=== PATIENT | male | born 1975 | race Caucasian/White ===

== ENCOUNTER 2019-08-27 08:00 | Outpatient (RCR) | payer BC, MEDICAID, SELFPAY | END 2019-08-31 15:31 | disposition home or self-care (01) | LOC: PT.CARL 08:00 | PROVIDERS: PCP Physician Assistant; Visit Provider Physician Assistant | DX: M25.511 Pain in right shoulder (principal) | CPT/HCPCS: 97110; 97163 ==

== ENCOUNTER 2020-01-10 17:57 | Observation (INO) | payer BC, MEDICAID, SELFPAY ==
[2020-01-10] VITALS (8 sets, daily range): BP systolic 97–131; BP diastolic 65–85; PULSE 67–115; RESP 16–28; TEMP 36.7–38.4; O2SAT 96–98; BMI 37.5; BMI 36.1
--- NOTE | 2020-01-10 18:01 | XR_ITS ---
PROCEDURE: XR CHEST PORTABLE CLINICAL HISTORY: SOA, fever, cough COMPARISON: XR CHEST 2V from 08/23/2019 CT CHEST W CON from 08/23/2019 CT ANGIO CHEST from 01/10/2020 FINDINGS: There has been prior gastric pull-through surgery with opacification of the right hemithorax medially. Atelectatic changes versus infiltrate noted in the right lower lobe. Right IJ central line present with the tip overlying the upper chest. The left lung is clear IMPRESSION: Prior gastric pull-through surgery with right basilar atelectasis or infiltrate Dictated by: Gabriel Feldman MD 01/11/2020 08:04 Electronically signed by Gabriel Feldman MD in [place] 01/11/2020 08:04
--- NOTE | 2020-01-10 18:01 | ECG_ITS ---
APPROVED REPORT Exam: Resting ECG HR:114 bpm ECG Measurements Heart Rate 114 AXES IL 150 P 55 QRSd 84 QRS 13 QT 342 T 67 QTc 471 <Conclusion> Sinus tachycardia with premature atrial complexes Possible Left atrial enlargement Borderline ECG Electronically signed by : Luke Stack, 01/11/2020 09:12:51
--- NOTE | 2020-01-10 18:02 | PC.NURSE ---
ER gave verbal orders for pt including rapid covid swab, contacted warehouse handler to get permission for rapid covid swab, warehouse handler okayed rapid covid swab. Lab notified, spoke with preet
[2020-01-10 18:24] LABS: Adenovirus,PCR Not Detected (NotDetected); Bordetella Pertussis Not Detected (NotDetected); Chlamydophila Pneumoniae, PCR Not Detected (NotDetected); Coronavirus 19, PCR Not Detected (NotDetected); Coronavirus 229E Not Detected (NotDetected); Coronavirus NL63 Not Detected (NotDetected); Coronavirus OC43 Not Detected (NotDetected); Coronovirus HKU1,PCR Not Detected (NotDetected); Human Metapneumovirus Not Detected (NotDetected); Influenza A, PCR Not Detected (NotDetected); Influenza AH1, 2009 Not Detected (NotDetected); Influenza AH1, PCR Not Detected (NotDetected); Influenza AH3,PCR Not Detected (NotDetected); Influenza B, PCR Not Detected (NotDetected); Mycoplasma Pneumoniae, PCR Not Detected (NotDetected); Parainfluenza 1, PCR Not Detected (NotDetected); Parainfluenza 2, PCR Not Detected (NotDetected); Parainfluenza 3, PCR Not Detected (NotDetected); Parainfluenza 4, PCR Not Detected (NotDetected); Respiratory Syncytial Virus Not Detected (NotDetected); Rhinovirus/Enterovirus Not Detected (NotDetected)
[2020-01-10 18:29] LABS: Basophils # 0.1 K/mm3 (0-0.2); Basophils % 0.8 % (0.1-2.0); Eosinophils % 0.3 % (0.1-12.0); Hematocrit 33.9 % (42.0-52.0); Hemoglobin 11.4 g/dL (14.1-18.0); Lymphocytes # 0.7 K/mm3 (0.7-4.5); Lymphocytes % 5.9 % (10-50); Mean Corpuscular HGB Conc 33.5 g/dL (31.8-35.4); Mean Corpuscular Hemoglobin 29.8 pg (27.0-31.2); Mean Platelet Volume 7.8 fl (7.4-10.4); Monocytes # 0.3 K/mm3 (0.1-1.0); Monocytes % 2.4 % (1.7-9.3); Neutrophils # 10.3 K/mm3 (1.8-7.8); Neutrophils % 91.5 % (37.0-80.0); Platelet Count 158 K/mm3 (142-424); Red Blood Count 3.81 M/mm3 (4.60-6.20); Red Cell Distribution Width 16.7 % (11.5-17.5); White Blood Count 11.2 K/mm3 (4.8-10.8)
--- NOTE | 2020-01-10 18:29 | PC.NURSE ---
Calling [facility] at this time to get records on his previous admissions
--- NOTE | 2020-01-10 18:30 | HMH.EDGENADL ---
ED Disposition Clinical Impression: Esophageal cancer, stage IV Pneumonia Qualifiers: Pneumonia type: due to unspecified organism Laterality: bilateral Lung location: lower lobe of lung Qualified Code(s): J18.9 - Pneumonia, unspecified organism Sepsis Qualifiers: Sepsis type: sepsis due to unspecified organism Sepsis acute organ dysfunction status: without acute organ dysfunction Qualified Code(s): A41.9 - Sepsis, unspecified organism Disposition: Xfer Critical Access Hosp Condition on Discharge: Fair Referrals: Huma Duke PA [Primary Care Provider] - Forms: Transfer Record - ED Time of Disposition: 20:39 - Critical Care Critical Care Time: No Attestation: On 01/10/20, the high probability of a clinically significant, sudden or life threatening deterioration of the following system(s) required my full and direct attention, intervention and personal management. The time I documented below is in addition to time spent performing reported procedures but includes the following listed in this critical care notation. Medical Decision Making - Medical Records Medical records reviewed: Yes: I reviewed the patient's medical records. - Manolo Inquiry Pt receiving controlled substance: No Vital Signs: 01/10/20 18:24 Temperature 101.1 F H Temperature Source Rectal Pulse Rate [Right Radial] 115 H Respiratory Rate 22 Blood Pressure [Right Arm] 97/71 L Blood Pressure Mean [Right Arm] 79 02 Sat by Pulse Oximetry 96 Oxygen Delivery Method Room Air - Lab Data Lab Results 01/10/20 18:14: WBC 11.2 H, RBC 3.81 L, Hgb 11.4 L, Hct 33.9 L, MCV 89.0, MCH 29.8, MCHC 33.5, RDW 16.7, Plt Count 158, MPV 7.8, Neut % (Auto) 91.5 H, Lymph % (Auto) 5.9 L, [place] % (Auto) 2.4, Eos % (Auto) 0.3, Baso % (Auto) 0.8, Neut # (Auto) 10.3 H, Lymph # (Auto) 0.7, [place] # (Auto) 0.3, Eos # (Auto) 0.0, Baso # (Auto) 0.1, Total Counted 100, Neutrophils % (Manual) 59, Band Neutrophils % 35.0 H, Lymphocytes % (Manual) 6 L, Differential Comment See below:, Toxic Granulation 1+, Platelet Estimate Normal, RBC Morphology Normal, Anisocytosis 1+ 08/02/20 18:14: Sodium 132 L, Potassium 3.6, Chloride 96 L, Carbon Dioxide 28, Anion Gap 11.6, BUN 22 H, Creatinine 0.90, Estimated Creat Clear 150, Estimated GFR 91, Est GFR ( Amer) 110, Glucose 99, Calcium 7.8 L, Troponin I < 0.01 01/10/20 18:14: Lactate 1.3 01/10/20 18:14: D-Dimer 2170 H* 01/10/20 18:14: PT 12.5 H, INR 1.23 H, APTT 25.6 01/10/20 18:14: Total Bilirubin 0.5, Direct Bilirubin 0.1, Conjugated Bilirubin 0.0, Indirect Bilirubin 0.4, Unconjugated Bilirubin 0.5, AST 24, ALT 17, Alkaline Phosphatase 103, Total Protein 6.0 L, Albumin 2.9 L 01/10/20 18:15: Chlamy pneumoniae PCR Not detected, Adenovirus (PCR) Not detected, B. pertussis DNA (PCR) Not detected, Coronavirus OC43 (PCR) Not detected, Coronavirus HKU1 (PCR) Not detected, Coronavirus 229E (PCR) Not detected, COVID-19 PCR Not detected, Coronavirus NL63 (PCR) Not detected, Human Metapneumovir PCR Not detected, Influenza A (H1) PCR Not detected, Influ A (H1N1/09) PCR Not detected, Influenza A (H3) PCR Not detected, Influenza Type A (PCR) Not detected, Influenza Type B (PCR) Not detected, M. pneumoniae (PCR) Not detected, Parainfluenza 1 (PCR) Not detected, Parainfluenza 2 (PCR) Not detected, Parainfluenza 3 (PCR) Not detected, Parainfluenza 4 (PCR) Not detected, RSV (PCR) Not detected, Entero/Rhino (PCR) Not detected Result diagrams: 01/10/20 18:14 01/10/20 18:14 Orders (Tests/Meds): ED MEDICATIONS Generic Name Dose Route Start Last Admin Trade Name Freq PRN Reason Stop Dose Admin Sodium Chloride 1,000 mls @ 999 mls/hr 01/10/20 18:15 01/10/20 18:18 Sod Chlor 0.9% 1000ml Bag IV 01/10/20 19:15 999 mls/hr .Q1H1M WILL Administration Cefepime HCl 2 gm/ Sodium 100 mls @ 200 mls/hr 01/10/20 18:45 01/10/20 18:49 Chloride IV 01/24/20 18:44 200 mls/hr Q8H WILL Administration Protocol Discontinued Medications Generi
[2020-01-10 18:32] LABS: MANUAL DIFFERENTIAL MANUAL DIFFERENTIAL (MANUAL DIFF)
[2020-01-10 18:33] LABS: Chloride 96 mmol/L (98-107); Potassium 3.6 mmoL/L (3.5-5.1); Sodium 132 mmol/L (136-145)
[2020-01-10 18:36] LABS: Blood Urea Nitrogen 22 mg/dl (9-20); Creatinine Clearance Estimated 150 mL/min (50-200); Estimated Glomerular Filt Rate 91 ml/min (>60); GFR (African American) 110 ML/MIN (>60); Lactic Acid 1.3 mmol/L (0.7-2.1)
[2020-01-10 18:37] LABS: Anion Gap 11.6 mEq/L (5-15); Calcium 7.8 mg/dl (8.4-10.2); Carbon Dioxide 28 mmol/L (22.0-30.0); Glucose 99 mg/dl (74-100)
[2020-01-10 18:39] LABS: Alanine Aminotransferase 17 U/L (12-78); Alkaline Phosphatase 103 U/L (38-126); Aspartate Amino Transferase 24 U/L (17-59); Bilirubin,Direct 0.1 mg/dl (0.0-0.4); Bilirubin,Indirect 0.4 mg/dL (0.0-0.9); Bilirubin,Total 0.5 mg/dl (0.2-1.3); Bilirubin,Unconjugated 0.5 mg/dL (0.0-1.1)
[2020-01-10 18:40] LABS: Albumin Level 2.9 g/dl (3.5-5.0)
[2020-01-10 18:45] LABS: Lymphocytes % 6 % (10-50); Neutrophils % 59 % (42-76); RBC Morphology Normal; Total Cells Counted 100
[2020-01-10 18:46] LABS: Anisocytosis 1+; Platelet Estimate Normal; Toxic Granulation 1+
[2020-01-10 18:47] LABS: Differential Comment SEE BELOW:
[2020-01-10 18:55] LABS: Activated Partial Thrombo Time 25.6 seconds (23.6-34.0); D-Dimer 2170 ng/mL (0-400); INR 1.23 (0.9-1.1); Prothrombin Time 12.5 seconds (9.4-11.8)
[2020-01-10 18:56] LABS: Troponin I < 0.01 ng/ml (0.00-0.034)
--- NOTE | 2020-01-10 18:59 | CT_ITS ---
PROCEDURE: CT ANGIO CHEST CLINCIAL INDICATION: short of breath, elevated d-dimer COMPARISON: CT CHEST W CON from 08/23/2019 TECHNIQUE: IV Contrast: 70ML OPTIRAY 350 Axial images obtained with sagittal and coronal reformats. All CT scans at the facility use one or more dose reduction, viz: automated exposure control, ma/kV adjustment per patient size (including targeted exams where dose is matched to indication, i.e. head), or iterative reconstruction technique. FINDINGS: There has been prior soft gas ectomy with gastric pull-through surgery. Extensive artifact is present from collateral vessels about the neck. There appears to be obstruction the right subclavian and right brachiocephalic vein with extensive collateral vessels. The SVC and left brachiocephalic vein is patent. No mediastinal or hilar mass. There is some fluid density noted in the esophagus bed inferiorly there is a small right pleural effusion with right-sided atelectatic changes with some pleural thickening in the right upper hemithorax posteriorly. A pleural drain is in place on the right. Loculated fluid collection is noted in the right lung base. No significant pleural enhancement or gas noted in this collection. Patchy density is present in the left lower lobe centrally suggesting a area of infiltrate. No acute bony anomalies. Upper abdominal images show borderline splenomegaly at 13 cm. There is some subcutaneous edema along the right lateral and anterior chest wall. There are postsurgical changes from the esophagectomy with some increase density of the fat in the upper abdomen. This is nonspecific and could be inflammatory infectious or even neoplastic. IMPRESSION: 1. Prior esophagectomy with gastric pull-through 2. Loculated right-sided pleural effusion with right basilar atelectasis 3. Patchy infiltrate in the left lower lobe. 4. 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 Increased soft tissue density in the upper abdominal fat centrally which could be inflammatory/infectious, or neoplastic. Dictated by: Gabriel Feldman MD 01/11/2020 08:46 Electronically signed by Gabriel Feldman MD in [place] 01/11/2020 08:46
--- NOTE | 2020-01-10 19:05 | PC.NURSE ---
notified rad of ct order on pt, spoke with randall, notified her pt is being worked up for covid
--- NOTE | 2020-01-10 19:24 | PC.NURSE ---
call placed to [facility] for possible transfer. spoke with shayla with the [facility]. they will call back
--- NOTE | 2020-01-10 19:29 | PC.NURSE ---
received call back from [facility]. on phone with dr jimenez at this time
--- NOTE | 2020-01-10 19:34 | PC.NURSE ---
accepted by dr treadwell
--- NOTE | 2020-01-10 20:21 | PC.NURSE ---
call placed to [facility] discussing bed condition. spoke with shayla. received knowledge that patient was actually on a waiting list and they would keep us updated. md ch made aware.
--- NOTE | 2020-01-10 20:23 | PC.NURSE ---
paged dr desouza who is production machine operator for service.
--- NOTE | 2020-01-10 20:23 | PC.NURSE ---
dr desouza returned call at this time.
--- NOTE | 2020-01-10 21:43 | PC.NURSE ---
PTARRIVED TO THE FLOOR VIA STRETCHER FROM ED AT 2142.
--- NOTE | 2020-01-10 22:33 | HMH.HP ---
*Admission Date: 01/10/20 *Chief complaint: Chest pain *History of present illness: This 44-year-old white male was diagnosed with esophageal cancer approximately 1 year ago. He was treated with surgery radiation and chemotherapy. The cancer recurred and is stage IV at this point. He is taken care of by Dr. Can oncology, I believe at [place] and by Dr. Henderson at [facility]. [facility] contacted Dr. Henderson who agreed to hospitalize him at [facility] but there were no beds available. Thus he is admitted here. He is primary care provider is Huma Duke in [place]. Patient lives in [place]. The patient complains of feeling short of breath and having pain in the chest and epigastrium. This is been going on for several days. He only vomited this evening. Though he has esophageal cancer the patient has no smoking history and no alcohol history. According to the ER record there is a past history of DVT. [facility] History Medical History: Reports:: Cancer (esophageal cancer), Hyperlipidemia, Hypertension Denies:: Diabetes Mellitus Type 1, Diabetes Mellitus Type 2, MRSA *Have you ever received a pneumonia vaccine?: No *Have you received a flu vaccine this season?: No Other Surgeries: Yes: Cancer Surgery Amputation: No - *Social History Last grade of school completed: High school graduate Smoking Status: Never smoker Alcohol Intake: never *Occupational Status:: retired *Travel in the last 8 weeks: None Family Hx:: Alcoholism (Father and with liver disease. at age 65.), Other (Mother 74 years old with dementia) Review of Systems - Constitutional Reports anorexia, Reports body ache(s), Reports weakness, Reports weight loss - Eyes Denies change in vision - ENT Reports difficulty swallowing - *Cardiovascular Reports chest pain, Reports chest pain at rest, Reports shortness of breath, Denies irregular heart rhythm - *Respiratory Reports chest congestion, Reports cough, Reports shortness of breath - *Gastrointestinal Reports abdominal pain, Reports loose stools - *Neurologic Reports weakness, Denies headache(s), Denies loss of vision, Denies dizziness Meds Home Medications Medication Instructions Recorded Confirmed Type Atorvastatin Calcium [Atorvastatin 20 mg PO DAILY 08/23/19 01/10/20 History 20mg Tab] Famotidine [Heartburn Prevention] 20 mg PO DAILY 08/23/19 01/10/20 History Metoclopramide HCl [Metoclopramide 10 mg PO DAILY 08/23/19 01/10/20 History 10mg Tablet] Multivitamin/Iron/Folic Acid 1 each PO DAILY 08/23/19 01/10/20 History [Sentry Tablet] Pantoprazole Sodium [Pantoprazole 20 mg PO DAILY 08/23/19 01/10/20 History 20mg Tab] Allergies Allergy/AdvReac Type Severity Reaction Status Date / Time No Known Allergies Allergy Verified 08/23/19 19:53 Exam Vital signs and Labs for Last 24 Hours: Temp Pulse Resp BP Pulse Ox 98.7 F 105 H 28 H 131/85 96 01/10/20 21:46 01/10/20 21:46 01/10/20 21:46 01/10/20 21:46 01/10/20 21:46 Laboratory Results - last 24 hr 01/10/20 18:14: WBC 11.2 H, RBC 3.81 L, Hgb 11.4 L, Hct 33.9 L, MCV 89.0, MCH 29.8, MCHC 33.5, RDW 16.7, Plt Count 158, MPV 7.8, Neut % (Auto) 91.5 H, Lymph % (Auto) 5.9 L, [place] % (Auto) 2.4, Eos % (Auto) 0.3, Baso % (Auto) 0.8, Neut # (Auto) 10.3 H, Lymph # (Auto) 0.7, [place] # (Auto) 0.3, Eos # (Auto) 0.0, Baso # (Auto) 0.1, Total Counted 100, Neutrophils % (Manual) 59, Band Neutrophils % 35.0 H, Lymphocytes % (Manual) 6 L, Differential Comment See below:, Toxic Granulation 1+, Platelet Estimate Normal, RBC Morphology Normal, Anisocytosis 1+ 01/10/20 18:14: Sodium 132 L, Potassium 3.6, Chloride 96 L, Carbon Dioxide 28, Anion Gap 11.6, BUN 22 H, Creatinine 0.90, Estimated Creat Clear 150, Estimated GFR 91, Est GFR ( Amer) 110, Glucose 99, Calcium 7.8 L, Troponin I < 0.01 01/10/20 18:14: Lactate 1.3 01/10/20 18:14: D-Dimer 2170 H* 01/10/20 18:14: PT 12.5 H, INR 1.23 H,
--- NOTE | 2020-01-10 23:07 | PC.NURSE ---
THIS NURSE WAS CONTACTED BY NURSE AT [facility] WANTING AN UPDATE ON PT. NURSE STATED THERE WAS STILL NO BED AVAILABLE, AND WILL CALL BACK IN A COUPLE HOURS FOR AN UPDATE.
[2020-01-11] VITALS: BP 119/71; PULSE 104; RESP 18; TEMP 36.8; O2SAT 95
--- NOTE | 2020-01-11 03:22 | PC.NURSE ---
A&OX4. PT TOLERATING RA THUS FAR, 2LNC ON STANDBY. PT STATES HE DOES GET SHORT OF BREATH EASILY. PT HAS INTERMITTENT COUGH, PRODUCING THICK LIGHT YELLOW SPUTUM. WILL ATTEMPT TO COLLECT SAMPLE. PT ALSO HAS HAD SOME NA/VO THIS SHIFT, TX WITH ZOFRAN PER AUG. ON REASSESSMENT, PT RESTING IN BED WITH EYES CLOSED. PT HAS ALSO C/O PAIN IN HIS MID CHEST AND LUNG AREA, STATES THAT IT GETS WORSE WHEN HE COUGHS. TX WITH PRN MORPHINE PER AUG. ON REASSESSMENT PT RESTING IN BED WITH NO C/O PAIN. PT STANDING UP AT THE SIDE OF BED WITH X1 ASSIST TO USE THE URINAL. PT STATES THAT HE FEELS VERY BAD, AND VERY TIRED. THIS NURSE HAS BEEN CONTACTED A SECOND TIME BY THE NURSE AT [facility] TO GET AN UPDATE ON THE PT AT 0158. NURSE STATES THAT IT WILL PROBABLY BE MORNING UNTIL A BED BECOMES AVAILABLE. NO OTHER C/O THUS FAR. VSS WILL CONTINUE TO MONITOR.
[2020-01-11 04:00] VITALS: BP 107/64; PULSE 99; RESP 18; TEMP 37; O2SAT 95
[2020-01-11 05:45] VITALS: BMI 36.3
[2020-01-11 05:59] LABS: Basophils # 0.1 K/mm3 (0-0.2); Basophils % 0.7 % (0.1-2.0); Eosinophils % 0.6 % (0.1-12.0); Hematocrit 33.9 % (42.0-52.0); Lymphocytes # 0.6 K/mm3 (0.7-4.5); Lymphocytes % 8.3 % (10-50); Mean Corpuscular HGB Conc 32.4 g/dL (31.8-35.4); Mean Corpuscular Hemoglobin 29.5 pg (27.0-31.2); Mean Platelet Volume 9.1 fl (7.4-10.4); Monocytes # 0.5 K/mm3 (0.1-1.0); Monocytes % 7.5 % (1.7-9.3); Neutrophils # 5.7 K/mm3 (1.8-7.8); Neutrophils % 82.9 % (37.0-80.0); Platelet Count 95 K/mm3 (142-424); Red Blood Count 3.72 M/mm3 (4.60-6.20); Red Cell Distribution Width 16.6 % (11.5-17.5); White Blood Count 6.9 K/mm3 (4.8-10.8)
[2020-01-11 06:09] LABS: Anion Gap 10.3 mEq/L (5-15); Blood Urea Nitrogen 19 mg/dl (9-20); Calcium 7.2 mg/dl (8.4-10.2); Carbon Dioxide 26 mmol/L (22.0-30.0); Chloride 101 mmol/L (98-107); Creatinine Clearance Estimated 187 mL/min (50-200); Estimated Glomerular Filt Rate 122 ml/min (>60); GFR (African American) 148 ML/MIN (>60); Glucose 95 mg/dl (74-100); Lactic Acid 0.8 mmol/L (0.7-2.1); Potassium 3.3 mmoL/L (3.5-5.1); Sodium 134 mmol/L (136-145)
--- NOTE | 2020-01-11 06:42 | PC.NURSE ---
ALEXANDER FROM [facility] CALLED FOR AN UPDATE FROM THIS NURSE FOR THE 3RD TIME TONIGHT. STILL NO BED AVAILABLE. THEY WILL CALL BACK IN A COUPLE HOURS.
--- NOTE | 2020-01-11 07:11 | P.CONPHA_ITS ---
[facility] Pharmacy VTE Monitoring - Patient Demographics Admission date: 01/10/20 Report Date: 01/11/20 Time: 07:11 Allergies/Adverse Reactions: Patient Allergies No Known Allergies Allergy (Verified 08/23/19 19:53) Height: 1.65 m Weight: 98.997 kg Patient Problems: Current Active Problems Pneumonia (Acute) Sepsis (Acute) Esophageal cancer, stage IV (Acute) - VTE Risk Labs: VTE Related Lab Results Hgb 11.0 g/dL (14.1-18.0) L 01/11/20 05:53 Hct 33.9 % (42.0-52.0) L 01/11/20 05:53 Plt Count 95 K/mm3 (142-424) L D 01/11/20 05:53 PT 12.5 seconds (9.4-11.8) H 01/10/20 18:14 INR 1.23 (0.9-1.1) H 01/10/20 18:14 APTT 25.6 seconds (23.6-34.0) 01/10/20 18:14 BUN 19 mg/dl (9-20) 01/11/20 05:53 Creatinine 0.70 mg/dl (0.66-1.25) D 01/11/20 05:53 Estimated Creat Clear 187 mL/min (50-200) 01/11/20 05:53 VTE Score: 5 VTE Risk Level: Low Risk - Prophylaxis VTE Prophylaxis Ordered?: Yes Types of VTE Prophylaxis: TEDS Knee High Location of Applied Device: Bilateral Lower Extremeties - VTE Diagnosis Confirmed Treatment or plan recommended: Continue Current Treatment
--- NOTE | 2020-01-11 07:55 | HMH.ACPN2 ---
Internal Medicine - PN: Subj *Date: 01/11/20 *Time: 07:55 Interval history: Patient states he is not doing well. He has pain in his epigastrium. He is nauseated. Food gets stuck in his esophagus. He is able to take p.o. fluids. He is a little short of breath this morning. He has pain in his chest on the inspiration. He is voiding QS. Bowels have not moved in several days. Laboratory data this morning shows normal white blood cell count at 6900 with a hemoglobin of 11 hematocrit of 33.9. Potassium is 3.3. Normal renal function. Official reading of chest x-ray and CTA are pending. Exam Vital signs and Labs for Last 24 Hours: Temp Pulse Resp BP Pulse Ox 98.6 F 99 H 18 107/64 L 95 01/11/20 04:00 01/11/20 04:00 01/11/20 04:00 01/11/20 04:00 01/11/20 04:00 Laboratory Results - last 24 hr 01/10/20 18:14: WBC 11.2 H, RBC 3.81 L, Hgb 11.4 L, Hct 33.9 L, MCV 89.0, MCH 29.8, MCHC 33.5, RDW 16.7, Plt Count 158, MPV 7.8, Neut % (Auto) 91.5 H, Lymph % (Auto) 5.9 L, [place] % (Auto) 2.4, Eos % (Auto) 0.3, Baso % (Auto) 0.8, Neut # (Auto) 10.3 H, Lymph # (Auto) 0.7, [place] # (Auto) 0.3, Eos # (Auto) 0.0, Baso # (Auto) 0.1, Total Counted 100, Neutrophils % (Manual) 59, Band Neutrophils % 35.0 H, Lymphocytes % (Manual) 6 L, Differential Comment See below:, Toxic Granulation 1+, Platelet Estimate Normal, RBC Morphology Normal, Anisocytosis 1+ 01/10/20 18:14: Sodium 132 L, Potassium 3.6, Chloride 96 L, Carbon Dioxide 28, Anion Gap 11.6, BUN 22 H, Creatinine 0.90, Estimated Creat Clear 150, Estimated GFR 91, Est GFR ( Amer) 110, Glucose 99, Calcium 7.8 L, Troponin I < 0.01 01/10/20 18:14: Lactate 1.3 01/10/20 18:14: D-Dimer 2170 H* 01/10/20 18:14: PT 12.5 H, INR 1.23 H, APTT 25.6 01/10/20 18:14: Total Bilirubin 0.5, Direct Bilirubin 0.1, Conjugated Bilirubin 0.0, Indirect Bilirubin 0.4, Unconjugated Bilirubin 0.5, AST 24, ALT 17, Alkaline Phosphatase 103, Total Protein 6.0 L, Albumin 2.9 L 01/10/20 18:15: Chlamy pneumoniae PCR Not detected, Adenovirus (PCR) Not detected, B. pertussis DNA (PCR) Not detected, Coronavirus OC43 (PCR) Not detected, Coronavirus HKU1 (PCR) Not detected, Coronavirus 229E (PCR) Not detected, COVID-19 PCR Not detected, Coronavirus NL63 (PCR) Not detected, Human Metapneumovir PCR Not detected, Influenza A (H1) PCR Not detected, Influ A (H1N1/09) PCR Not detected, Influenza A (H3) PCR Not detected, Influenza Type A (PCR) Not detected, Influenza Type B (PCR) Not detected, M. pneumoniae (PCR) Not detected, Parainfluenza 1 (PCR) Not detected, Parainfluenza 2 (PCR) Not detected, Parainfluenza 3 (PCR) Not detected, Parainfluenza 4 (PCR) Not detected, RSV (PCR) Not detected, Entero/Rhino (PCR) Not detected 01/11/20 05:53: WBC 6.9 D, RBC 3.72 L, Hgb 11.0 L, Hct 33.9 L, MCV 91.0, MCH 29.5, MCHC 32.4, RDW 16.6, Plt Count 95 L D, MPV 9.1, Neut % (Auto) 82.9 H, Lymph % (Auto) 8.3 L, [place] % (Auto) 7.5, Eos % (Auto) 0.6, Baso % (Auto) 0.7, Neut # (Auto) 5.7, Lymph # (Auto) 0.6 L, [place] # (Auto) 0.5, Eos # (Auto) 0.0, Baso # (Auto) 0.1 01/11/20 05:53: Sodium 134 L, Potassium 3.3 L, Chloride 101, Carbon Dioxide 26, Anion Gap 10.3, BUN 19, Creatinine 0.70 D, Estimated Creat Clear 187, Estimated GFR 122, Est GFR ( Amer) 148 D, Glucose 95, Calcium 7.2 L 01/11/20 05:53: Lactate 0.8 I & O for Last 24 hours: Intake & Output 01/08/20 01/09/20 01/10/20 01/11/20 11:59 11:59 11:59 11:59 Intake Total 1309 / 1309 Output Total 1350 / 1350 Balance -41 / -41 Weight 218 lb 4 oz - Constitutional no acute distress Comments: Sitting on bedside trying to eat his breakfast. - *Routine Respiratory Exam Comments: Unable to take deep breaths due to inspiratory discomfort. Diminished breath sounds posteriorly but otherwise sounds clear - *Routine Cardiovascular Exam Present: RRR (90/min) - *Routine Abdominal Exam Present: soft, tenderness (Epigastrium). Absent: normoactive bowel sounds (Decreased) Comments:
[2020-01-11 07:56] VITALS: BP 116/61; PULSE 100; RESP 18; TEMP 36.8; O2SAT 97
--- NOTE | 2020-01-11 10:57 | HMH.PHACONS ---
- Pharmacy Consult Date: 01/11/20 Time: 09:00 Referring provider: Rajan Sneed Reason for Consult:: Management of vancomycin therapy for empiric treatment of pneumonia Allergies and ADEs:: Allergies Allergy/AdvReac Type Severity Reaction Status Date / Time No Known Allergies Allergy Verified 08/23/19 19:53 Home Medications:: Home Medications Medication Instructions Recorded Confirmed Type Atorvastatin Calcium [Atorvastatin 20 mg PO DAILY 08/23/19 01/10/20 History 20mg Tab] Famotidine [Heartburn Prevention] 20 mg PO HS PRN 08/23/19 01/11/20 History Metoclopramide HCl [Metoclopramide 10 mg PO Q6HP PRN 08/23/19 01/11/20 History 10mg Tablet] Multivitamin/Iron/Folic Acid 1 each PO DAILY 08/23/19 01/10/20 History [Sentry Tablet] Ciprofloxacin HCl [Ciprofloxacin 500 mg PO BID 01/11/20 01/11/20 History 500mg Tab] Enoxaparin Sodium [Lovenox 100 mg SQ BID 01/11/20 01/11/20 History 100mg/mL syringe] Furosemide [Furosemide 20mg Tab] 20 mg PO DAILY 01/11/20 01/11/20 History Ondansetron [Ondansetron Odt 8mg 8 mg PO Q8HP PRN 01/11/20 01/11/20 History Tab] Pantoprazole Sodium [Protonix 40mg 40 mg PO DAILY 01/11/20 01/11/20 History tablet] Potassium Chloride [Klor-con 20 20 meq PO DAILY 01/11/20 01/11/20 History mEq tablet] Zolpidem Tartrate [Ambien 5mg 5 mg PO HSP PRN 01/11/20 01/11/20 History tablet] hydrOXYzine pamoate [Vistaril 25mg 25 mg PO HS 01/11/20 01/11/20 History capsule] metroNIDAZOLE [metroNIDAZOLE 500mg 500 mg PO TID 01/11/20 01/11/20 History Tablet] Height: 1.65 m Weight: 98.997 kg Laboratory Results:: Laboratory Results - last 24 hr 01/10/20 18:14: WBC 11.2 H, RBC 3.81 L, Hgb 11.4 L, Hct 33.9 L, MCV 89.0, MCH 29.8, MCHC 33.5, RDW 16.7, Plt Count 158, MPV 7.8, Neut % (Auto) 91.5 H, Lymph % (Auto) 5.9 L, [place] % (Auto) 2.4, Eos % (Auto) 0.3, Baso % (Auto) 0.8, Neut # (Auto) 10.3 H, Lymph # (Auto) 0.7, [place] # (Auto) 0.3, Eos # (Auto) 0.0, Baso # (Auto) 0.1, Total Counted 100, Neutrophils % (Manual) 59, Band Neutrophils % 35.0 H, Lymphocytes % (Manual) 6 L, Differential Comment See below:, Toxic Granulation 1+, Platelet Estimate Normal, RBC Morphology Normal, Anisocytosis 1+ 01/10/20 18:14: Sodium 132 L, Potassium 3.6, Chloride 96 L, Carbon Dioxide 28, Anion Gap 11.6, BUN 22 H, Creatinine 0.90, Estimated Creat Clear 150, Estimated GFR 91, Est GFR ( Amer) 110, Glucose 99, Calcium 7.8 L, Troponin I < 0.01 01/10/20 18:14: Lactate 1.3 01/10/20 18:14: D-Dimer 2170 H* 01/10/20 18:14: PT 12.5 H, INR 1.23 H, APTT 25.6 01/10/20 18:14: Total Bilirubin 0.5, Direct Bilirubin 0.1, Conjugated Bilirubin 0.0, Indirect Bilirubin 0.4, Unconjugated Bilirubin 0.5, AST 24, ALT 17, Alkaline Phosphatase 103, Total Protein 6.0 L, Albumin 2.9 L 01/10/20 18:15: Chlamy pneumoniae PCR Not detected, Adenovirus (PCR) Not detected, B. pertussis DNA (PCR) Not detected, Coronavirus OC43 (PCR) Not detected, Coronavirus HKU1 (PCR) Not detected, Coronavirus 229E (PCR) Not detected, COVID-19 PCR Not detected, Coronavirus NL63 (PCR) Not detected, Human Metapneumovir PCR Not detected, Influenza A (H1) PCR Not detected, Influ A (H1N1/09) PCR Not detected, Influenza A (H3) PCR Not detected, Influenza Type A (PCR) Not detected, Influenza Type B (PCR) Not detected, M. pneumoniae (PCR) Not detected, Parainfluenza 1 (PCR) Not detected, Parainfluenza 2 (PCR) Not detected, Parainfluenza 3 (PCR) Not detected, Parainfluenza 4 (PCR) Not detected, RSV (PCR) Not detected, Entero/Rhino (PCR) Not detected 01/11/20 05:53: WBC 6.9 D, RBC 3.72 L, Hgb 11.0 L, Hct 33.9 L, MCV 91.0, MCH 29.5, MCHC 32.4, RDW 16.6, Plt Count 95 L D, MPV 9.1, Neut % (Auto) 82.9 H, Lymph % (Auto) 8.3 L, [place] % (Auto) 7.5, Eos % (Auto) 0.6, Baso % (Auto) 0.7, Neut # (Auto) 5.7, Lymph # (Auto) 0.6 L, [place] # (Auto) 0.5, Eos # (Auto) 0.0, Baso # (Auto) 0.1 01/11/20 05:53: Sodium 134 L, Potassium 3.3 L, Chloride 101, Carbon Dioxide 26, Anion Gap 10.3, BU
[2020-01-11 11:44] VITALS: BP 123/78; PULSE 99; RESP 20; TEMP 36.8; O2SAT 99
--- NOTE | 2020-01-11 11:56 | HMH.PHAINT ---
HOME MEDICATION RECONCILIATION ATTEMPTED USING LIST FROM [facility] [employer] AND PT INTERVIEW. PT POOR HISTORIAN.
--- NOTE | 2020-01-11 11:59 | PC.NURSE ---
Spoke with Windy from [facility]. She states no beds are available at this time but she was going to call dr Sneed to see if pt needed an ICU bed as requested or a regular med surg bed would be ok. She says she will call when a bed is available.
[2020-01-11 13:40] VITALS: BMI 36.3
[2020-01-11 15:15] VITALS: BP 106/75; PULSE 97; RESP 20; TEMP 36.7; O2SAT 98
--- NOTE | 2020-01-11 15:40 | PC.NURSE ---
Windy from [facility] called to update on bed status, no beds are available at this time.
--- NOTE | 2020-01-11 18:25 | PC.NURSE ---
called lab to check on vanc trough, they said they are working on it
[2020-01-11 20:00] VITALS: BP 110/70; PULSE 97; RESP 18; TEMP 36.9; O2SAT 96
[2020-01-12] VITALS (9 sets, daily range): BP systolic 105–128; BP diastolic 64–85; PULSE 83–100; RESP 17–22; TEMP 36.7–37.6; O2SAT 94–97; BMI 36.4
--- NOTE | 2020-01-12 04:46 | PC.NURSE ---
Hypertonic Solution given at 1932 for sputum induction. Pt unable to produce sputum
--- NOTE | 2020-01-12 05:18 | PC.NURSE ---
SPOKE WITH [facility] TWICE THIS SHIFT, HOSPITAL REPORTED THAT THEY STILL DO NOT HAVE A BED FOR PT. PT. HAS C/O INTERMITTENT NAUSEA, COUGH AND H/A. TX WITH ZOFRAN AND TYLENOL PER AUG; EFFECTIVENESS NOTED. PT. HAS NOT NEEDED PRN O2 THIS SHIFT. RESTING IN BED WITH EYES CLOSED AT THIS TIME.
[2020-01-12 07:08] LABS: Basophils % 0.2 % (0.1-2.0); Eosinophils % 0.6 % (0.1-12.0); Hematocrit 33.4 % (42.0-52.0); Hemoglobin 11.7 g/dL (14.1-18.0); Lymphocytes # 0.7 K/mm3 (0.7-4.5); Mean Corpuscular HGB Conc 34.9 g/dL (31.8-35.4); Mean Corpuscular Hemoglobin 30.1 pg (27.0-31.2); Mean Corpuscular Volume 86.3 fl (80-94); Mean Platelet Volume 10.8 fl (7.4-10.4); Monocytes # 0.8 K/mm3 (0.1-1.0); Monocytes % 11.6 % (1.7-9.3); Neutrophils # 5.5 K/mm3 (1.8-7.8); Neutrophils % 77.5 % (37.0-80.0); Platelet Count 72 K/mm3 (142-424); Red Blood Count 3.87 M/mm3 (4.60-6.20); Red Cell Distribution Width 16.6 % (11.5-17.5); White Blood Count 7.1 K/mm3 (4.8-10.8)
--- NOTE | 2020-01-12 08:55 | P.PN_ITS ---
Internal Medicine - PN: Subj *Date: 01/12/20 *Time: 08:55 Interval history: Does not feel any better. He continues with the pain in the epigastrium. He states food lodges in his esophagus. He continues with chest pain on inspiration. Voiding QS although he states his urine has a foul odor. His bowels did move yesterday. He plans to sit up in a chair today. Exam Vital signs and Labs for Last 24 Hours: Temp Pulse Resp BP Pulse Ox 98.2 F 100 H 18 118/76 95 01/12/20 07:32 01/12/20 07:32 01/12/20 07:32 01/12/20 07:32 01/12/20 07:32 Laboratory Results - last 24 hr 01/11/20 16:01: Vancomycin Trough 18.0 H 01/12/20 06:08: WBC 7.1, RBC 3.87 L, Hgb 11.7 L, Hct 33.4 L, MCV 86.3, MCH 30.1, MCHC 34.9, RDW 16.6, Plt Count 72 L, MPV 10.8 H, Neut % (Auto) 77.5, Lymph % (Auto) 10.0, [place] % (Auto) 11.6 H, Eos % (Auto) 0.6, Baso % (Auto) 0.2, Neut # (Auto) 5.5, Lymph # (Auto) 0.7, [place] # (Auto) 0.8, Eos # (Auto) 0.0, Baso # (Auto) 0.0 I & O for Last 24 hours: Intake & Output 01/09/20 01/10/20 01/11/20 01/12/20 11:59 11:59 11:59 11:59 Intake Total 1669 / 1669 3617 / 3617 Output Total 1450 / 1450 1230 / 1230 Balance 219 / 219 2387 / 2387 Weight 218 lb 4 oz 219 lb - Constitutional no acute distress Comments: Sitting on the bedside. - *Routine Respiratory Exam Comments: Unable to take a deep breath. Diminished breath sounds posteriorly. - *Routine Cardiovascular Exam Present: RRR - *Routine Abdominal Exam Present: soft, normoactive bowel sounds, tenderness (Epigastrium). Absent: distended Comments: Dressing over right lateral abdomen clean and dry. - *Routine Extremities Exam Absent: edema, calf tenderness Assessment and Plan (1) Esophageal cancer, stage IV Current visit: Yes Status: Acute Category: Medical Code(s): C15.9 - Malignant neoplasm of esophagus, unspecified (2) Atypical chest pain Current visit: No Status: Acute Category: Medical Code(s): R07.89 - Other chest pain (3) Pneumonia Current visit: Yes Status: Acute Qualifiers: Pneumonia type: due to unspecified organism Laterality: bilateral Lung location: lower lobe of lung Qualified Code(s): J18.9 - Pneumonia, unspecified organism Category: Medical Code(s): J18.9 - Pneumonia, unspecified organism - Assessment and plan all Dx Assessment and Plan for all problems:: BMP is pending at this point. Patient is eating just fair. He does drink fluids without any problems. Continues to await bed at [facility]. will decrease IVF's and do UA
[2020-01-12 09:05] LABS: Chloride 101 mmol/L (98-107); Sodium 135 mmol/L (136-145)
[2020-01-12 09:06] LABS: Potassium 3.1 mmoL/L (3.5-5.1)
--- NOTE | 2020-01-12 09:08 | HMH.PHACONS ---
- Pharmacy Consult Date: 01/12/20 Time: 09:08 Referring provider: DR. FAITH Reason for Consult:: VANCOMYCIN TROUGH LEVEL AND DOSE CHANGE Allergies and ADEs:: Allergies Allergy/AdvReac Type Severity Reaction Status Date / Time No Known Allergies Allergy Verified 08/23/19 19:53 Home Medications:: Home Medications Medication Instructions Recorded Confirmed Type Atorvastatin Calcium [Atorvastatin 20 mg PO DAILY 08/23/19 01/11/20 History 20mg Tab] Famotidine [Heartburn Prevention] 20 mg PO HS PRN 08/23/19 01/11/20 History Metoclopramide HCl [Metoclopramide 10 mg PO Q6HP PRN 08/23/19 01/11/20 History 10mg Tablet] Multivitamin/Iron/Folic Acid 1 each PO DAILY 08/23/19 01/11/20 History [Sentry Tablet] Ciprofloxacin HCl [Ciprofloxacin 500 mg PO BID 01/11/20 01/11/20 History 500mg Tab] Furosemide [Furosemide 20mg Tab] 20 mg PO DAILY 01/11/20 01/11/20 History Ondansetron [Ondansetron Odt 8mg 8 mg PO Q8HP PRN 01/11/20 01/11/20 History Tab] Pantoprazole Sodium [Protonix 40mg 40 mg PO DAILY 01/11/20 01/11/20 History tablet] Potassium Chloride [Klor-con 20 20 meq PO DAILY 01/11/20 01/11/20 History mEq tablet] Zolpidem Tartrate [Ambien 5mg 5 mg PO HSP PRN 01/11/20 01/11/20 History tablet] hydrOXYzine pamoate [Vistaril 25mg 25 mg PO HS 01/11/20 01/11/20 History capsule] metroNIDAZOLE [metroNIDAZOLE 500mg 500 mg PO TID 01/11/20 01/11/20 History Tablet] Height: 1.65 m Weight: 99.337 kg Laboratory Results:: Laboratory Results - last 24 hr 01/11/20 16:01: Vancomycin Trough 18.0 H 01/12/20 06:08: WBC 7.1, RBC 3.87 L, Hgb 11.7 L, Hct 33.4 L, MCV 86.3, MCH 30.1, MCHC 34.9, RDW 16.6, Plt Count 72 L, MPV 10.8 H, Neut % (Auto) 77.5, Lymph % (Auto) 10.0, [place] % (Auto) 11.6 H, Eos % (Auto) 0.6, Baso % (Auto) 0.2, Neut # (Auto) 5.5, Lymph # (Auto) 0.7, [place] # (Auto) 0.8, Eos # (Auto) 0.0, Baso # (Auto) 0.0 01/12/20 08:50: Sodium 135 L, Potassium 3.1 L, Chloride 101 Medical History: Reports:: Cancer (esophageal cancer), Hyperlipidemia, Hypertension Denies:: Diabetes Mellitus Type 1, Diabetes Mellitus Type 2, MRSA Assessment and Plan (1) Esophageal cancer, stage IV Current visit: Yes Status: Acute Category: Medical Code(s): C15.9 - Malignant neoplasm of esophagus, unspecified (2) Atypical chest pain Current visit: No Status: Acute Category: Medical Code(s): R07.89 - Other chest pain (3) Pneumonia Current visit: Yes Status: Acute Qualifiers: Pneumonia type: due to unspecified organism Laterality: bilateral Lung location: lower lobe of lung Qualified Code(s): J18.9 - Pneumonia, unspecified organism Category: Medical Code(s): J18.9 - Pneumonia, unspecified organism - Assessment and plan all Dx Assessment and Plan for all problems:: BASED ON PATIENT FACTORS AND VANCOMYCIN TROUGH LEVEL OF 18.0, RECOMMEND DECREASING VANCOMYCIN DOSE TO 1,750MG EVERY 8 HOURS. WILL OBTAIN TROUGH LEVEL THIS EVENING AT 1930 AND WILL ADJUST DOSE APPROPRIATE AT THAT POINT. -JOSE JUAN RUCKER PHARMD
[2020-01-12 09:09] LABS: Anion Gap 11.1 mEq/L (5-15); Blood Urea Nitrogen 15 mg/dl (9-20); Calcium 7.8 mg/dl (8.4-10.2); Carbon Dioxide 26 mmol/L (22.0-30.0); Creatinine Clearance Estimated 187 mL/min (50-200); Estimated Glomerular Filt Rate 122 ml/min (>60); GFR (African American) 148 ML/MIN (>60); Glucose 158 mg/dl (74-100)
--- NOTE | 2020-01-12 12:28 | PC.NURSE ---
AT 1200 PT CALLED OUT AND STATED HE WAS HAVING SHARP PAIN THAT HE RATED 7/10 IN THE MID EPIGASTRIC AREA. PAIN WAS NON RADIATING AND TENDER TO TOUCH. BP 118/79, HR 96, O2 SATURATION 98% 2 L NC. RESPIRATIONS 26. PT WAS GIVEN MORPHINE 4 MG. PT ALSO HAS A PLEURAL DRAIN NOTED TO THE RT SIDE THAT HE STATES HE USUALLY EMPTIES AT HOME EVERY SATURDAY. NOTIFIED AND HE WANTED A PULMONARY CONSULT ORDERED. OFFICE NOTIFIED.
--- NOTE | 2020-01-12 13:40 | PC.NURSE ---
SPOKE TO BRUCE AT [facility]. SHE STATED THERE WAS NO BED AT THIS TIME AND WILL CALL BACK WHEN ONE BECOMES AVAILABLE
[2020-01-12 14:55] LABS: Microscopic, Urine URINE MICROSCOPIC (MICROSCOPIC)
[2020-01-12 14:57] LABS: Appearance,Urine CLEAR (Clear); Bilirubin,Urine Negative (Negative); Blood, Urine Negative (Negative); Color,Urine YELLOW (Yellow); Glucose,Urine (UA) Negative (Negative); Ketones,Urine Negative (Negative); Leukocyte Esterase,Urine Negative (Negative); Nitrate,Urine Negative (Negative); PH,Urine 5.5 (5.0-8.5); Protein,Urine TRACE (Negative); Specific Gravity, Urine 1.025 (1.005-1.030); Urobilinogen,Urine 0.2 EU/dl (0.2)
--- NOTE | 2020-01-12 14:57 | CT_ITS ---
PROCEDURE: CT ABDOMEN WO CON CLINICAL HISTORY: epigastric pain Epigastric pain with nausea, stage IV soft Jewel cancer COMPARISON: CT CT ANGIO CHEST from 01/10/2020 TECHNIQUE: Axial images obtained with sagittal and coronal reformats. All CT scans at the facility use one or more dose reduction, viz: automated exposure control, ma/kV adjustment per patient size (including targeted exams where dose is matched to indication, i.e. head), or iterative reconstruction technique. FINDINGS: There has been prior gastric pull-through surgery. There is a loculated pleural effusion in the right lung base. Pleural drainage catheter noted on the right. These findings are not significantly changed from 01/10/2020. The gastric pouch is slightly distended with some fluid. Tree-in-bud nodularity noted in the left lower lobe suspicious for pneumonia not significantly changed. The liver, gallbladder, spleen, and adrenal glands have an unremarkable appearance. No renal or ureteral calculi evident. There is increased soft tissue density in the area of the previous gastric bed which could be scarring or could be neoplastic. Nodularity is noted in the retroperitoneum inferiorly and on the left consistent with enlarged lymph nodes. The cluster of nodes in the left lower retroperitoneum is at 5.3 x 2.5 cm No intestinal obstruction or free air. There are multiple nodular densities in the subcutaneous tissue of the lower abdomen and could be due to areas of injection or metastatic nodules. There is some stranding of the subcutaneous fat in the right lower abdomen and right lateral abdomen. No acute bony anomalies. IMPRESSION: 1. Prior gastric pull-through surgery. There is mild distention of the gastric pouch containing some fluid inferiorly. No evidence of small-bowel obstruction 2. Concern for retroperitoneal metastatic adenopathy or carcinomatosis 3. Large loculated right pleural effusion. 4. Left lower lobe infiltrate/pneumonia Dictated b Gabriel Feldman MD 01/13/2020 08:18 Gabriel Feldman MD in [place] 01/13/2020 08:18
[2020-01-12 15:19] LABS: Squamous Epithelial Cell,Urine Occasional #/hpf (0-5)
--- NOTE | 2020-01-12 16:21 | HMH.ACPN2 ---
Internal Medicine - PN: Subj *Date: 01/12/20 *Time: 16:21 Interval history: Dr. Sneed was contacted by [facility] ([facility]) to restablish contact for possible transfer. Dr. Sneed spoke with Dr. Henderson who is still agreeable to transfer when bed is available. Exam Vital signs and Labs for Last 24 Hours: Temp Pulse Resp BP Pulse Ox 98.3 F 99 H 22 105/64 L 95 01/12/20 15:57 01/12/20 15:57 01/12/20 15:57 01/12/20 15:57 01/12/20 15:57 Laboratory Results - last 24 hr 01/11/20 16:01: Vancomycin Trough 18.0 H 01/12/20 06:08: WBC 7.1, RBC 3.87 L, Hgb 11.7 L, Hct 33.4 L, MCV 86.3, MCH 30.1, MCHC 34.9, RDW 16.6, Plt Count 72 L, MPV 10.8 H, Neut % (Auto) 77.5, Lymph % (Auto) 10.0, [place] % (Auto) 11.6 H, Eos % (Auto) 0.6, Baso % (Auto) 0.2, Neut # (Auto) 5.5, Lymph # (Auto) 0.7, [place] # (Auto) 0.8, Eos # (Auto) 0.0, Baso # (Auto) 0.0 01/12/20 08:50: Sodium 135 L, Potassium 3.1 L, Chloride 101, Carbon Dioxide 26, Anion Gap 11.1, BUN 15, Creatinine 0.70, Estimated Creat Clear 187, Estimated GFR 122, Est GFR ( Amer) 148, Glucose 158 H, Calcium 7.8 L 01/12/20 14:30: Urine Color Yellow, Urine Appearance Clear, Urine pH 5.5, Ur Specific [place] 1.025, Urine Protein Trace, Urine Glucose (UA) Negative, Urine Ketones Negative, Urine Blood Negative, Urine Nitrate Negative, Urine Bilirubin Negative, Urine Urobilinogen 0.2, Ur Leukocyte Esterase Negative, Urine WBC 3-5, Ur Squamous Epith Cells Occasional I & O for Last 24 hours: Intake & Output 08/02/20 08/03/20 08/04/20 08/05/20 11:59 11:59 11:59 11:59 Intake Total 1669 / 1669 3617 / 3617 1221 / 1221 Output Total 1450 / 1450 1230 / 1230 Balance 219 / 219 2387 / 2387 1221 / 1221 Weight 218 lb 4 oz 219 lb Assessment and Plan (1) Esophageal cancer, stage IV Current visit: Yes Status: Acute Category: Medical Code(s): C15.9 - Malignant neoplasm of esophagus, unspecified (2) Atypical chest pain Current visit: No Status: Acute Category: Medical Code(s): R07.89 - Other chest pain (3) Pneumonia Current visit: Yes Status: Acute Qualifiers: Pneumonia type: due to unspecified organism Laterality: bilateral Lung location: lower lobe of lung Qualified Code(s): J18.9 - Pneumonia, unspecified organism Category: Medical Code(s): J18.9 - Pneumonia, unspecified organism
--- NOTE | 2020-01-12 16:45 | HMH.PULMCON ---
*Admission Date: 01/10/20 *Reason for consult:: Chest Tube management *History of present illness: is a 44-year-old male with a history of esophageal cancer stage IV status post surgery radiation and chemotherapy, likely malignant right-sided pleural effusion with Pleurx catheter placed 3 months ago as per the patient sent to the emergency department with worsening epigastric pain and pulmonary was called to manage the patient's Pleurx catheter. As per the patient the Pleurx catheter was placed 3 months ago for malignant pleural effusion which he initially used to drain every other day but for the last month he is draining it once a week, every Saturday. Patient on this complains of epigastric pain, abdominal pain fatigue diffuse body aches and shortness of breath. [facility] History Medical History: Reports:: Cancer (esophageal cancer), Hyperlipidemia, Hypertension Denies:: Diabetes Mellitus Type 1, Diabetes Mellitus Type 2, MRSA *Have you ever received a pneumonia vaccine?: No *Have you received a flu vaccine this season?: No Other Surgeries: Yes: Cancer Surgery Amputation: No - *Social History Last grade of school completed: High school graduate Smoking Status: Never smoker Alcohol Intake: never *Occupational Status:: retired *Travel in the last 8 weeks: None Family Hx:: Alcoholism (Father and with liver disease. at age 65.), Other (Mother 74 years old with dementia) Review of Systems - Review of Systems Review of systems:: pertinent systems reviewed and negative unless documented below - *Neurologic Reports weakness, Denies headache(s), Denies loss of vision, Denies dizziness Meds Home Medications Medication Instructions Recorded Confirmed Type Atorvastatin Calcium [Atorvastatin 20 mg PO DAILY 08/23/19 01/11/20 History 20mg Tab] Famotidine [Heartburn Prevention] 20 mg PO HS PRN 08/23/19 01/11/20 History Metoclopramide HCl [Metoclopramide 10 mg PO Q6HP PRN 08/23/19 01/11/20 History 10mg Tablet] Multivitamin/Iron/Folic Acid 1 each PO DAILY 08/23/19 01/11/20 History [Sentry Tablet] Ciprofloxacin HCl [Ciprofloxacin 500 mg PO BID 01/11/20 01/11/20 History 500mg Tab] Furosemide [Furosemide 20mg Tab] 20 mg PO DAILY 01/11/20 01/11/20 History Ondansetron [Ondansetron Odt 8mg 8 mg PO Q8HP PRN 01/11/20 01/11/20 History Tab] Pantoprazole Sodium [Protonix 40mg 40 mg PO DAILY 01/11/20 01/11/20 History tablet] Potassium Chloride [Klor-con 20 20 meq PO DAILY 01/11/20 01/11/20 History mEq tablet] Zolpidem Tartrate [Ambien 5mg 5 mg PO HSP PRN 01/11/20 01/11/20 History tablet] hydrOXYzine pamoate [Vistaril 25mg 25 mg PO HS 01/11/20 01/11/20 History capsule] metroNIDAZOLE [metroNIDAZOLE 500mg 500 mg PO TID 01/11/20 01/11/20 History Tablet] Allergies Allergy/AdvReac Type Severity Reaction Status Date / Time No Known Allergies Allergy Verified 08/23/19 19:53 Exam Vital signs and Labs for Last 24 Hours: Temp Pulse Resp BP Pulse Ox 98.3 F 99 H 22 105/64 L 95 01/12/20 15:57 01/12/20 15:57 01/12/20 15:57 01/12/20 15:57 01/12/20 15:57 Laboratory Results - last 24 hr 01/11/20 16:01: Vancomycin Trough 18.0 H 01/12/20 06:08: WBC 7.1, RBC 3.87 L, Hgb 11.7 L, Hct 33.4 L, MCV 86.3, MCH 30.1, MCHC 34.9, RDW 16.6, Plt Count 72 L, MPV 10.8 H, Neut % (Auto) 77.5, Lymph % (Auto) 10.0, [place] % (Auto) 11.6 H, Eos % (Auto) 0.6, Baso % (Auto) 0.2, Neut # (Auto) 5.5, Lymph # (Auto) 0.7, [place] # (Auto) 0.8, Eos # (Auto) 0.0, Baso # (Auto) 0.0 01/12/20 08:50: Sodium 135 L, Potassium 3.1 L, Chloride 101, Carbon Dioxide 26, Anion Gap 11.1, BUN 15, Creatinine 0.70, Estimated Creat Clear 187, Estimated GFR 122, Est GFR ( Amer) 148, Glucose 158 H, Calcium 7.8 L 01/12/20 14:30: Urine Color Yellow, Urine Appearance Clear, Urine pH 5.5, Ur Specific [place] 1.025, Urine Protein Trace, Urine Glucose (UA) Negative, Urine Ketones Negative, Urine Blood Negative, Urine Nitrate
--- NOTE | 2020-01-12 17:08 | PC.NURSE ---
PT WAS SEEN BY PULMONOLOGY AND PHYSICIAN STATED THAT HE DID NOT FEEL THAT HIS PAIN WAS PULMONARY RELATED AND AFTER ASSESSING THE PLEURAL DRAIN AND TALKING WITH PT HE DOES NOT SEE THE NEED FOR ANY FLUID TO BE DRAINED OFF AT THIS TIME. IT WAS RECOMMENDED THAT PT HAS A CT OF THE ABDOMEN AND MAYBE A GI COCKTAIL TO HELP WITH DISCOMFORT. DR. FAITH NOTIFIED AND WAS OK WITH THE ABDOMINAL CT AND AND GI COCKTAIL. SINCE GI COCKTAIL PT STATED THAT HE STILL FEELS REALLY BAD BUT HE FEELS LIKE THE GI COCKTAIL HELPED WITH HIS PAIN MORE THAN THE MORPHINE.
--- NOTE | 2020-01-12 17:23 | PC.NURSE ---
PT IS RESTING IN BED. TOLERATED SITTING UP IN THE CHAIR THIS MORNING. PT HAS AMBULATED TO THE BATHROOM A COUPLE TIMES THIS SHIFT. WHEN PT IS ASKED HOW HE IS FEELING HE STATES I JUST FEEL AWFUL PT HAS HAD EPIGASTRIC PAIN T/O THE SHIFT WHICH WAS RELIEVED WITH GI COCKTAIL. PT STATES IT HURTS TO TAKE A DEEP BREATH. O2 SATURATION HAS BEEN IN THE MID 90'S ON ROOM AIR. PT STATES HE FEELS LIKE SOMETHING IS STUCK IN HIS THROAT ALL THE TIME EVEN WHEN NOT EATING. LUNG SOUNDS DIMINISHED. BOWEL SOUNDS NORMAL. CLEAN CATCH URINE WAS COLLECTED AND SENT TO LAB. URINE JUMA/CLOUDY/FOUL SMELL. EATING AND DRINKING FAIR. DRESSING TO PLEURAL DRAIN INTACT. VSS. PT IS STILL WAITING FOR BED AT [facility]. WILL CONTINUE TO MONITOR.
[2020-01-12 19:50] LABS: Peripheral Smear Review Scanned Result
--- NOTE | 2020-01-12 21:36 | PC.NURSE ---
Addendum entered by Miriam Pineda RN 01/12/20 22:12: Home medications sent with patient. Original Note: Pt is transferring to [facility] per EMS. Transported per stretcher with EMS staff. VSS. EMS has paperwork in hand. Informed EMS of medications given to pt. Will call [place] and make them aware.
--- NOTE | 2020-01-12 21:49 | PC.NURSE ---
Called nurse at [facility] to update them on pt and let them know he was on his way.
[2020-01-13 00:11] LABS: Vancomycin,Trough 38.9 ug/mL (5.0-10.0)
--- NOTE | 2020-01-13 00:35 | PC.NURSE ---
Called [facility] to let them know about elevated vanc trough of 38.9.
--- NOTE | 2020-01-13 08:27 | HMH.DCSUM ---
General - General Admission date:: 01/10/20 Discharge date: 01/12/20 HPI HPI: This 44-year-old white male was diagnosed with esophageal cancer approximately 1 year ago. He was treated with surgery radiation and chemotherapy. The cancer recurred and is stage IV at this point. He is taken care of by Dr. Can oncology, I believe at [place] and by Dr. Henderson at [facility]. [facility] contacted Dr. Henderson who agreed to hospitalize him at [facility] but there were no beds available. Thus he was admitted at [facility]. He is primary care provider is [facility] in [place]. Patient lives in [place]. The patient complained of feeling short of breath and having pain in the chest and epigastrium. This had been going on for several days. He only vomited the evening of admission. Though he has esophageal cancer the patient has no smoking history and no alcohol history. According to the ER record there is a past history of DVT. Hospital Course Hospital Course: Patient was admitted and started on IV antibiotics, ,cefepime and vancomycin and IVF. He had morphine ordered for his pain and was started on potassium for hypokalemia. Potassium did normalize. He also had a belladonna GI cocktail which helped his upper GI discomfort. Transfer to [facility] in [facility] was initiated by physician in the emergency room. Transfer efforts were he was then well continued. Patient continued to have upper abdominal pain as well as inability to swallow food. He was able to swallow liquids. He had difficulty taking a deep breath which was felt to be from his pneumonia. White blood cell count did normalalize now normalized at 7100 with a hemoglobin of 11.7 and hematocrit of 33.4 renal function was normal. Troponin I was negative. Urinalysis was negative UTI. D-dimer was noted to be elevated at 2170 but CTA of the chest was negative for pulmonary embolism. It mainly showed the pneumonia. He also had a CT of the abdomen which revealed distention of the gastric pouch containing some fluids with no evidence of small bowel obstruction. There was noted a concern for retro-peritoneal metaplastic adenopathy. He had a large loculated right pleural effusion and a left lower lobe infiltrate/pneumonia. Patient continued not to feel well. He did try to eat but did vomit. Suctioning himself did help. He was able to sleep periodically. He was able to sit up in a chair. On 01/12/2020 bed was obtained at [facility]. Patient was transferred to [facility] to services of Dr. Henderson. Condition at transfer was stable and guarded. Objective Vital signs: Temp Pulse Resp BP Pulse Ox 99.1 F 87 20 128/81 97 01/12/20 20:00 01/12/20 21:02 01/12/20 20:00 01/12/20 20:00 01/12/20 20:05 Narrative: Exam Vital signs and Labs for Last 24 Hours: Temp Pulse Resp BP Pulse Ox 98.2 F 100 H 18 118/76 95 01/12/20 07:32 01/12/20 07:32 01/12/20 07:32 01/12/20 07:32 01/12/20 07:32 Laboratory Results - last 24 hr 01/11/20 16:01: Vancomycin Trough 18.0 H 01/12/20 06:08: WBC 7.1, RBC 3.87 L, Hgb 11.7 L, Hct 33.4 L, MCV 86.3, MCH 30.1, MCHC 34.9, RDW 16.6, Plt Count 72 L, MPV 10.8 H, Neut % (Auto) 77.5, Lymph % (Auto) 10.0, [place] % (Auto) 11.6 H, Eos % (Auto) 0.6, Baso % (Auto) 0.2, Neut # (Auto) 5.5, Lymph # (Auto) 0.7, [place] # (Auto) 0.8, Eos # (Auto) 0.0, Baso # (Auto) 0.0 I & O for Last 24 hours: Intake & Output 01/09/20 01/10/20 01/11/20 01/12/20 11:59 11:59 11:59 11:59 Intake Total 1669 / 1669 3617 / 3617 Output Total 1450 / 1450 1230 / 1230 Balance 219 / 219 2387 / 2387 Weight 218 lb 4 oz 219 lb - Constitutional no acute distress Comments: Sitting on the bedside. - *Routine Respiratory Exam Comments: Unable to take a deep breath. Diminished breath sounds posteriorly. - *Routine Cardiovascular Exam Present: RRR - *Rout
== END 2020-01-12 21:36 | disposition short-term general hospital (02) ==
LOC: ER 20:44 → 2ND 01-11 05:50
PROVIDERS: Nurse Practitioner Family; Admitting Provider Family Medicine; Emergency Provider Emergency Medicine; PCP Physician Assistant; Visit Provider Family Medicine
DX: J18.9 Pneumonia, unspecified organism (principal); C15.9 Malignant neoplasm of esophagus, unspecified; Z79.899 Other long term (current) drug therapy
CPT/HCPCS: 36415; 71045; 71275; 74150; 80048; 80076; 80202; 81001; 83605; 84484; 85007; 85025; 85378; 85610; 85730; 87040; 87581; 87633; 87798; 93005; 94640; 96365; 96367; 99285; G0378; J2405; J3370; Q9967

== ENCOUNTER 2020-01-26 01:05 | Emergency (ER) | payer BC, MEDICAID, SELFPAY ==
[2020-01-26] VITALS (20 sets, daily range): BP systolic 104–125; BP diastolic 57–87; PULSE 108–126; RESP 12–20; TEMP 36.6–36.9; O2SAT 91–98; BMI 36.6
--- NOTE | 2020-01-26 01:20 | XR_ITS ---
PROCEDURE: XR CHEST AP CLINICAL HISTORY: fall Posttraumatic pain COMPARISON: CR XR CHEST 2V from 08/23/[address] ANGIO CHEST from 01/10/2020 CR XR CHEST PORTABLE from 01/10/2020 FINDINGS: Cardiomegaly without failure. There remains consolidation/volume in the right lower lobe which may be slightly worse. There has been prior gastric pull-through surgery causing some increased density in the right mid lower lung zone medially. Right IJ central venous line remains in place. No acute bony abnormalities. IMPRESSION: Slight increase in lower lobe atelectasis or infiltrate Dictated by: Gabriel Feldman MD 01/26/2020 05:33 Gabriel Feldman MD in [place] 01/26/2020 05:33
--- NOTE | 2020-01-26 01:20 | XR_ITS ---
PROCEDURE: XR PELVIS 1-2V CLINICAL INDICATION: fall Posttraumatic pain COMPARISON: CT CT ABDOMEN WO CON from 01/12/2020 TECHNIQUE: XR Pelvis AP View FINDINGS: No fracture or dislocation is evident. No significant degenerative change. There is mild widening of the symphysis pubis. 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 Subchondral cystic changes are present in the acetabular and may be chronic.. IMPRESSION: No acute findings. Dictated by: Gabriel Feldman MD 01/26/2020 05:22 Gabriel Feldman MD in [facility] 01/26/2020 05:22
--- NOTE | 2020-01-26 01:33 | CT_ITS ---
PROCEDURE: CT CERVICAL SPINE WO CON CLINICAL INDICATION: fall Posttraumatic pain, Neck injury with pain, contusion/abrasion or hematoma, cervical sprain/strain the COMPARISON: No exams were available for comparison TECHNIQUE: Axial images obtained with sagittal and coronal reformats. All CT scans at the facility use one or more dose reduction, viz: automated exposure control, ma/kV adjustment per patient size (including targeted exams where dose is matched to indication, i.e. head), or iterative reconstruction technique. Axial spiral CT scanning performed of the cervical spine beginning at the base of the skull and continuing to the upper T-spine. 3-D multiplanar reconstruction with 3-D manipulation of volumetric data set in image rendering was completed by the radiologist and/or technologist with the supervision of the radiologist on independent workstation. FINDINGS: Normal alignment. No fracture or dislocation. Mild degenerative disc disease C5-C6 and C6-C7. Right IJ Port-A-Cath noted. There is pleural thickening in the right apex. There has been prior gastric pull-through surgery with postsurgical changes. IMPRESSION: No acute finding. Please see above for detail Dictated by: Gabriel Feldman MD 01/26/2020 05:47 Gabriel Feldman MD in [place] 01/26/2020 05:47
--- NOTE | 2020-01-26 01:33 | CT_ITS ---
PROCEDURE: CT HEAD/BRAIN WO CON CLINICAL INDICATION: fall Head injury with headache/pain, contusion, abrasion or hematoma COMPARISON: No exams were available for comparison TECHNIQUE: Axial images obtained. All CT scans at the facility use one or more dose reduction, viz: automated exposure control, ma/kV adjustment per patient size (including targeted exams where dose is matched to indication, i.e. head), or iterative reconstruction technique. FINDINGS: No midline shift, mass effect, intracranial hemorrhage, hydrocephalus, or extra-axial fluid collection is evident. The calvarium has an unremarkable appearance. No mastoid effusion. No sinus air-fluid level. IMPRESSION: No acute intracranial finding Dictated by: Gabriel Feldman MD 01/26/2020 05:43 Gabriel Feldman MD in [facility] 01/26/2020 05:43
[2020-01-26 01:38] LABS: Basophils # 0.5 K/mm3 (0-0.2); Eosinophils # 0.1 K/mm3 (0.0-0.4); Eosinophils % 0.3 % (0.1-12.0); Hematocrit 33.3 % (42.0-52.0); Hemoglobin 10.7 g/dL (14.1-18.0); Lymphocytes # 0.7 K/mm3 (0.7-4.5); Lymphocytes % 2.4 % (10-50); Mean Corpuscular HGB Conc 32.2 g/dL (31.8-35.4); Mean Corpuscular Hemoglobin 28.8 pg (27.0-31.2); Mean Corpuscular Volume 89.4 fl (80-94); Mean Platelet Volume 7.1 fl (7.4-10.4); Monocytes # 2.4 K/mm3 (0.1-1.0); Monocytes % 8.7 % (1.7-9.3); Neutrophils % 86.6 % (37.0-80.0); Platelet Count 332 K/mm3 (142-424); Red Blood Count 3.72 M/mm3 (4.60-6.20); Red Cell Distribution Width 16.7 % (11.5-17.5); White Blood Count 27.7 K/mm3 (4.8-10.8)
[2020-01-26 01:40] LABS: Alanine Aminotransferase 11 U/L (12-78); Albumin Level 3.2 g/dl (3.5-5.0); Albumin/Globulin Ratio 0.9 (1.1-1.8); Alkaline Phosphatase 136 U/L (38-126); Anion Gap 9.7 mEq/L (5-15); Aspartate Amino Transferase 25 U/L (17-59); Bilirubin,Total 0.4 mg/dl (0.2-1.3); Blood Urea Nitrogen 16 mg/dl (9-20); Calcium 8.8 mg/dl (8.4-10.2); Carbon Dioxide 31 mmol/L (22.0-30.0); Chloride 93 mmol/L (98-107); Creatinine Clearance Estimated 132 mL/min (50-200); Estimated Glomerular Filt Rate 81 ml/min (>60); GFR (African American) 98 ML/MIN (>60); Globulin 3.6 g/dL (1.3-3.2); Glucose 111 mg/dl (74-100); Potassium 4.7 mmoL/L (3.5-5.1); Sodium 129 mmol/L (136-145); Total Protein,Serum 6.8 g/dl (6.3-8.2)
[2020-01-26 01:41] LABS: MANUAL DIFFERENTIAL MANUAL DIFFERENTIAL (MANUAL DIFF)
[2020-01-26 02:06] LABS: Lymphocytes % 16 % (10-50); Monocytes % 6 % (2-9); Neutrophils % 78 % (42-76); Total Cells Counted 100
[2020-01-26 02:07] LABS: Ovalocytes 1+; Platelet Estimate Normal
--- NOTE | 2020-01-26 02:23 | ECG_ITS ---
APPROVED REPORT Exam: Resting ECG HR:109 bpm ECG Measurements Heart Rate 109 AXES LA 176 P 48 QRSd 86 QRS 34 QT 336 T 50 QTc 452 <Conclusion> Sinus tachycardia Otherwise normal ECG Electronically signed by : Luke Stack, 01/26/2020 13:46:57
[2020-01-26 02:37] LABS: Troponin I < 0.01 ng/ml (0.00-0.034)
[2020-01-26 02:39] LABS: Lactic Acid 0.8 mmol/L (0.7-2.1)
[2020-01-26 02:47] LABS: Microscopic, Urine URINE MICROSCOPIC (MICROSCOPIC)
[2020-01-26 02:53] LABS: Appearance,Urine CLEAR (Clear); Bilirubin,Urine Negative (Negative); Blood, Urine Negative (Negative); Color,Urine YELLOW (Yellow); Glucose,Urine (UA) Negative (Negative); Ketones,Urine TRACE (Negative); Leukocyte Esterase,Urine Negative (Negative); Nitrate,Urine Negative (Negative); PH,Urine 5.5 (5.0-8.5); Protein,Urine TRACE (Negative); Specific Gravity, Urine >= 1.030 (1.005-1.030); Urobilinogen,Urine 0.2 EU/dl (0.2)
[2020-01-26 02:58] LABS: Bacteria,Urine 1+ /lpf; Mucus,Urine 1+ /lpf; RBC,Urine Occasional #/hpf (0-3); WBC,Urine Occasional #/hpf (0-3)
--- NOTE | 2020-01-26 03:07 | [facility].EDFALL ---
ED Disposition Clinical Impression: HCAP (healthcare-associated pneumonia), Esophageal cancer, stage IV, SIRS (systemic inflammatory response syndrome) Fall Qualifiers: Encounter type: initial encounter Qualified Code(s): W19.XXXA - Unspecified fall, initial encounter Disposition: Xfer Short-Term Hosp Condition on Discharge: Fair Referrals: Provider,Referral, [Primary Care Provider] - - Critical Care Critical Care Time: No Attestation: On 01/26/20, the high probability of a clinically significant, sudden or life threatening deterioration of the following system(s) required my full and direct attention, intervention and personal management. The time I documented below is in addition to time spent performing reported procedures but includes the following listed in this critical care notation. Medical Decision Making - Medical Records Medical records reviewed: Yes: I reviewed the patient's medical records. - Manolo Inquiry Pt receiving controlled substance: No Vital Signs: 01/26/20 01:14 Temperature 98.4 F Temperature Source Oral Pulse Rate [Right] 124 H Respiratory Rate 18 Blood Pressure [Right Arm] 123/71 Blood Pressure Mean [Right Arm] 88 Blood Pressure Source [Right Arm] Automatic Cuff Blood Pressure Position [Right Arm] Sitting 02 Sat by Pulse Oximetry 91 L Oxygen Delivery Method Nasal Cannula Oxygen Flow Rate (LPM) 3 - Lab Data Lab results reviewed: Yes: I reviewed the patient's lab results. Lab Results 01/26/20 01:10: WBC 27.7 H*, RBC 3.72 L, Hgb 10.7 L, Hct 33.3 L, MCV 89.4, MCH 28.8, MCHC 32.2, RDW 16.7, Plt Count 332, MPV 7.1 L, Neut % (Auto) 86.6 H, Lymph % (Auto) 2.4 L, Winn % (Auto) 8.7, Eos % (Auto) 0.3, Baso % (Auto) 2.0, Neut # (Auto) 24.0 H, Lymph # (Auto) 0.7, Winn # (Auto) 2.4 H, Eos # (Auto) 0.1, Baso # (Auto) 0.5 H, Total Counted 100, Neutrophils % (Manual) 78 H, Lymphocytes % (Manual) 16, Monocytes % (Manual) 6, Platelet Estimate Normal, Ovalocytes 1+ 01/26/20 01:10: Sodium 129 L, Potassium 4.7, Chloride 93 L, Carbon Dioxide 31 H, Anion Gap 9.7, BUN 16, Creatinine 1.00, Estimated Creat Clear 132, Estimated GFR 81, Est GFR ( Amer) 98, Glucose 111 H, Calcium 8.8, Total Bilirubin 0.4, AST 25, ALT 11 L, Alkaline Phosphatase 136 H, Total Protein 6.8, Albumin 3.2 L, Globulin 3.6 H, Albumin/Globulin Ratio 0.9 L 01/26/20 01:10: Troponin I < 0.01 01/26/20 02:15: Lactate 0.8 01/26/20 02:40: Urine Color Yellow, Urine Appearance Clear, Urine pH 5.5, Ur Specific Wickett >= 1.030, Urine Protein Trace, Urine Glucose (UA) Negative, Urine Ketones Trace, Urine Blood Negative, Urine Nitrate Negative, Urine Bilirubin Negative, Urine Urobilinogen 0.2, Ur Leukocyte Esterase Negative, Urine RBC Occasional, Urine WBC Occasional, Urine Bacteria 1+, Urine Mucus 1+ Result diagrams: 01/26/20 01:10 01/26/20 01:10 Orders (Tests/Meds): ED MEDICATIONS Generic Name Dose Route Start Last Admin Trade Name Freq PRN Reason Stop Dose Admin Sodium Chloride 1,000 mls @ 999 mls/hr 01/26/20 01:30 01/26/20 01:26 Sod Chlor 0.9% 1000ml Bag IV 01/26/20 02:30 999 mls/hr .Q1H1M WILL Administration Sodium Chloride 1,000 mls @ 100 mls/hr 01/26/20 04:00 01/26/20 04:02 Sod Chlor 0.9% 1000ml Bag IV 02/25/20 03:59 100 mls/hr .Q10H WILL Administration Discontinued Medications Generic Name Dose Route Start Last Admin Trade Name Freq PRN Reason Stop Dose Admin Cefepime HCl 1 gm/ Sodium 50 mls @ 100 mls/hr 01/26/20 04:08 01/26/20 04:11 Chloride IV 01/26/20 04:09 100 mls/hr ONCE ONE Administration Protocol Ondansetron HCl 4 mg 01/26/20 01:24 01/26/20 01:26 Zofran 4mg/2ml Vial IV 01/26/20 01:25 4 mg ONCE ONE Administration ORDERS Category Date Time Status CT cervical spine wo con Stat Cat Scan 01/26/20 01:[address] head/brain wo con Stat Cat Scan 01/26/20 01:33 Taken XR chest AP Stat Exams 01/26/20 01:20 Taken XR pelvis 1-2V Stat Exams 01/26/20 01:20 Taken
--- NOTE | 2020-01-26 04:01 | PC.NURSE ---
lab at bedside
--- NOTE | 2020-01-26 04:21 | PC.NURSE ---
[place] speaking with Dr. cotter, pt accepted at this time and they will call back with a bed assignment.
--- NOTE | 2020-01-26 05:03 | PC.NURSE ---
spoke with xin at the [facility]; stated that they do not have a bed available currently but expected to have one after shift change. she went on to state that the assignment has been escalated up to her housing electronic controls repairer supervisor, however no changes at this time. [phone] is the number utilized. states they will update after shift change
[2020-01-26 05:49] LABS: Troponin I < 0.01 ng/ml (0.00-0.034)
--- NOTE | 2020-01-26 06:22 | PC.NURSE ---
Kym Boyce Rn called for an update. She states they are still working on getting the pt a bed.
--- NOTE | 2020-01-26 08:12 | PC.NURSE ---
Lab at bedside
--- NOTE | 2020-01-26 08:12 | PC.NURSE ---
Pt repositioned in bed by myself and MAE Marmolejo. Pt states he is ready to go home. Explained to pt that we should be hearing back about bed assignment soon. Pt ok with this. Will continue to monitor.
--- NOTE | 2020-01-26 08:46 | PC.NURSE ---
Contacted [facility] to check on status of bed assignment, states they are waiting on discharges to come through, states they should start knowing more about discharges and how many beds will be available around noon today. Spoke with Windy
[2020-01-26 08:55] LABS: Troponin I < 0.01 ng/ml (0.00-0.034)
--- NOTE | 2020-01-26 09:04 | PC.NURSE ---
Notified Dr. Dominguez who was mold shifter ER MD that I have contacted [facility] who stated they do not have a bed for pt currently but do still anticipate discharges today but not until around noon. Dr. Dominguez states to request that radiologist read pts chest xray to confirm pneumonia, and then to check with pharmacy on additional antibiotics for pt. States pt has had cefepime already and he would suggest cefepime and Vancomycin. have contacted radiology to request reading on chest xray
--- NOTE | 2020-01-26 09:12 | PC.NURSE ---
Reading is in PACS per Hung in radiology. Current ER MD (Dr. Samuel) viewed xray in PACs states pt xray is read as having an infiltrate. will contact pharmacy r/t antibiotics
--- NOTE | 2020-01-26 09:16 | PC.NURSE ---
spoke with Madhav in pharmacy r/t antibiotics dosing as requested per Dr. Dominguez to get dosing on Vancomycin and Cefipime. Madhav stated he will dose medications and mix medications and bring them down. Will continue to monitor
--- NOTE | 2020-01-26 09:19 | PC.NURSE ---
requested soft foods for breakfast for pt, pt reports like oatmeal. contacting warehouse laborer for a more comfortable bed for pt while waiting on bed assignment at [facility]. States she will find a bed for pt and bring it down.
--- NOTE | 2020-01-26 09:23 | PC.NURSE ---
Pt in restroom at this time.
--- NOTE | 2020-01-26 09:26 | PC.NURSE ---
Pt sitting up on side of the bed eating at this time
--- NOTE | 2020-01-26 12:52 | PC.NURSE ---
Calling [facility] at this time to get an update on bed assignment.
--- NOTE | 2020-01-26 12:53 | PC.NURSE ---
Spoke with access center at [facility], they stated that there still weren't any beds at this time but discharges were beginning to come through and hopefully it wouldn't get too long per acid crane operator.
--- NOTE | 2020-01-26 14:34 | PC.NURSE ---
pT SITTING UP EATING LUNCH AT THIS TIME.
--- NOTE | 2020-01-26 15:44 | PC.NURSE ---
[facility] called with a bed assignment and number to call report attempted to call report at this time states the room that pt is assigned to is not cleaned yet, they took a call back number for me states they will have to receiving nurse to call me back when the room is ready.
--- NOTE | 2020-01-26 16:31 | PC.NURSE ---
Report called to Lyubov Rendon RN at [facility] at this time.
--- NOTE | 2020-01-26 16:59 | PC.NURSE ---
report given to [facility] at this time
== END 2020-01-26 17:00 | disposition short-term general hospital (02) ==
PROVIDERS: Emergency Provider Emergency Medicine
DX: J18.9 Pneumonia, unspecified organism (principal); C15.9 Malignant neoplasm of esophagus, unspecified; R65.10 Systemic inflammatory response syndrome (SIRS) of non-infectious origin without acute organ dysfunction; I10 Essential (primary) hypertension; E78.5 Hyperlipidemia, unspecified; Z79.899 Other long term (current) drug therapy; W01.0XXA Fall on same level from slipping, tripping and stumbling without subsequent striking against object, initial encounter; Y92.013 Bedroom of single-family (private) house as the place of occurrence of the external cause
CPT/HCPCS: 70450; 71045; 72125; 72170; 80053; 81001; 83605; 84484; 85007; 85025; 87040; 93005; 96365; 96366; 96367; 99285; J0692; J2405; J3370; U0003